=== PATIENT | female | born 1995 | race Caucasian/White ===

== ENCOUNTER 2016-11-25 00:49 | Emergency (ER) | payer OTHER, SELFPAY ==
[~2016-11-25 00:49] MED LIST: ANXIETY PILL; BIRTH CONTROL PO; CELEBREX; COMPAZINE10 M PO; IRON; MOTRIN600 MG PO; NORCO 5/325 TAB1 TAB PO; NORCO 5/3251 TA1 PO; PROVENTIL17 GM IH; TRAMADOL HCL50 MG PO
[2016-11-25] MEDS ORDERED: MULTI VITAMIN1 EAC2 PO (00:56)
[2016-11-25] MEDS ORDERED: PROAIR HFA8.5 GM IH (00:58)
[2016-11-25 01:55] LABS: URINE BILIRUBIN NEGATIVE (NEG); URINE BLOOD NEGATIVE (NEG); URINE GLUCOSE (UA) NEGATIVE (NEG); URINE KETONE NEGATIVE (NEG); URINE LEUKOCYTE ESTERASE NEGATIVE (NEG); URINE NITRITE NEGATIVE (NEG); URINE PROTEIN NEGATIVE (NEG); URINE SPECIFIC GRAVITY 1.005 (1.003-1.030)
[2016-11-25 01:59] LABS: URINE APPEARANCE CLEAR; URINE COLOR YELLOW
[2016-11-25 02:03] LABS: BASO % 0.1 % (0-2); EOS % 3.1 % (0-7); EOSINOPHIL ABSOLUTE COUNT 0.2 tho/cmm (0.0-0.7); HGB-HEMOGLOBIN 14.8 gm/dl (12.0-15.5); IMMATURE GRANULOCYTES ABSOLUTE 0.01 tho/cmm (0-0.03); IMMATURE GRANULOCYTES PERCENT 0.1 % (0-0.3); LYMPH % 31.2 % (20-45); LYMPH ABSOLUTE COUNT 2.4 tho/cmm (0.8-4.5); MCH (MEAN CORPUSCULAR HGB) 31.6 pg (28.0-32.0); MCHC MEAN CORPUSCULAR HGB CONC 36.1 % (32.0-36.0); MCV (MEAN CELL VOLUME) 87.6 fl (82.0-96.0); MEAN PLATELET VOLUME 12.6 cmc (9.4-12.4); MONO % 5.1 % (0-12); MONOCYTE ABSOLUTE COUNT 0.4 tho/cmm (0.0-1.2); NEUTROPHIL ABSOLUTE COUNT 4.6 tho/cmm (1.6-8.0); NEUTROPHIL-AUTOMATED 4.6 tho/cmm (1.6-8.0); NEUTROPHILS % 60.4 % (40-80); PLATELET COUNT 213 tho/cmm (150-450); RED BLOOD COUNT 4.68 mil/cmm (4.00-5.20); WHITE BLOOD COUNT 7.7 tho/cmm (4.0-10.0)
== END 2016-11-25 02:54 ==
LOC: EDMED 00:49
PROVIDERS: Emergency Medicine
DX: N83.201 Unspecified ovarian cyst, right side (principal); F17.210 Nicotine dependence, cigarettes, uncomplicated
CPT/HCPCS: J1885; J2405; J7030